=== PATIENT | female | born 1975 | race Caucasian/White ===

== ENCOUNTER 2018-07-13 16:01 | Emergency (ER) | payer SELFPAY ==
[~2018-07-13] VITALS: Ht 149.9 cm; Wt 54.4 kg
[2018-07-13 16:01] VITALS: BP_SYST 141
[2018-07-13] MEDS ORDERED: PHENAZOPYRIDINE HCL 100 MG TABLET PO ONE (16:45)
[2018-07-13] MEDS ORDERED: SULFAMETHOXAZOLE/TRIMETHOPR DS 1 TABLET PO ONE (16:45)
[2018-07-13 16:49] VITALS: BP_SYST 138
== END 2018-07-13 16:47 | disposition home or self-care (01) ==
LOC: SED 16:01
DX: N39.0 Urinary tract infection, site not specified (principal)
CPT/HCPCS: 81002; 81025; 99283